=== PATIENT | male | born 1995 | race African-American/Black ===

== ENCOUNTER 2020-05-28 17:36 | Emergency (ER) | payer SELFPAY ==
[~2020-05-28] VITALS: Ht 172.7 cm; Wt 68.0 kg
[2020-05-28 18:43] VITALS: BP 142/61
[2020-05-28] MEDS ORDERED: PENICILLIN G BENZATHINE 2,400,000 UNITS/4ML SYR IM ONE (19:30)
[2020-05-28] MEDS ORDERED: PENICILLIN G BENZATHINE 1,200,000 UNITS/2ML SYR IM NR (20:00)
[2020-05-28 20:38] LABS: CLARITY URINE CLEAR (CLEAR); COLOR URINE DARK YELLOW (YELLOW); KETONES URINE NEGATIVE (NEGATIVE); LEUKOCYTE ESTERASE URINE TRACE (NEGATIVE); NITRITE URINE NEGATIVE (NEGATIVE); OCCULT BLOOD URINE NEGATIVE (NEGATIVE); PH URINE 6.5 (4.5-8.0); PROTEIN URINE 1+ (NEGATIVE); SPECIFIC GRAVITY URINE 1.033 (1.005-1.030)
[2020-05-31 05:09] LABS: NEISSERIA GONORRHOEAE NAA Negative (Negative)
== END 2020-05-28 20:45 | disposition home or self-care (01) ==
LOC: ER 17:36
DX: A51.0 Primary genital syphilis (principal); Z20.2 Contact with and (suspected) exposure to infections with a predominantly sexual mode of transmission
CPT/HCPCS: 81003; 86592; 87491; 87591; 96372; 99283; J0561

== ENCOUNTER 2023-07-21 14:16 | Emergency (ER) | payer SELFPAY ==
[~2023-07-21] VITALS: Ht 175.3 cm; Wt 71.0 kg
[2023-07-21] MEDS ORDERED: DOXYCYCLINE HYCLATE 100MG CAPSULE PO ONE (15:30)
[2023-07-21] MEDS ORDERED: CEFTRIAXONE SODIUM 500 MG/VIAL IM ONE (15:30)
[2023-07-21] MEDS ORDERED: DOXY100C5 MT (16:03)
[2023-07-21 16:13] VITALS: BP 124/78; PULSE 77; RESP 18; TEMP 98.3
[2023-07-24 05:11] LABS: CHLAMYDIA TRACHOMATIS NAA Negative (Negative); NEISSERIA GONORRHOEAE NAA Positive (Negative)
== END 2023-07-21 16:14 | disposition home or self-care (01) ==
LOC: ER 14:16
DX: Z20.2 Contact with and (suspected) exposure to infections with a predominantly sexual mode of transmission (principal); J45.909 Unspecified asthma, uncomplicated; Z88.6 Allergy status to analgesic agent; Z98.890 Other specified postprocedural states
CPT/HCPCS: 99283; 87491; 87591; 96372; J0696

== ENCOUNTER 2023-11-26 09:35 | Emergency (ER) | payer MEDICAID ==
[~2023-11-26] VITALS: Ht 175.3 cm; Wt 81.6 kg
[~2023-11-26 09:35] MED LIST: DOXY100C5 MT
[2023-11-26 09:38] VITALS: O2SAT 97
[2023-11-26] MEDS ORDERED: DOXY100T2 MT (10:14)
[2023-11-26] MEDS: CEFTRIAXONE SODIUM 500MG VIAL IM ONE (10:15)
[2023-11-26] MEDS: LIDOCAINE HCL 1% 20ML VIAL (Pyxis) INJ INFIL ONE (10:45)
[2023-11-26 10:54] VITALS: BP 122/63; PULSE 70; RESP 16; TEMP 98.2
== END 2023-11-26 11:19 | disposition home or self-care (01) ==
LOC: ER 09:35
DX: A64 Unspecified sexually transmitted disease (principal); J45.909 Unspecified asthma, uncomplicated
CPT/HCPCS: 99283; 86592; 36415; 96372; J0696; J3490

== ENCOUNTER 2023-12-17 21:26 | Emergency (ER) | payer MEDICAID ==
[~2023-12-17] VITALS: Ht 176.5 cm; Wt 82.0 kg
[~2023-12-17 21:26] MED LIST changes: +DOXY100T2 MT
[2023-12-17 22:21] VITALS: BP 93/66; PULSE 99; RESP 16; TEMP 98.1; O2SAT 98
[2023-12-18] MEDS ORDERED: CEFTRIAXONE SODIUM 500MG VIAL IM ONE (03:15)
[2023-12-18] MEDS ORDERED: DOXY100T2 MT (03:21)
== END 2023-12-18 04:39 | disposition home or self-care (01) ==
LOC: ER 21:26
DX: A64 Unspecified sexually transmitted disease (principal); J45.909 Unspecified asthma, uncomplicated
CPT/HCPCS: 99283; J0696

== ENCOUNTER 2023-12-18 21:49 | Emergency (ER) | payer MEDICAID ==
[~2023-12-18] VITALS: Ht 175.3 cm; Wt 64.9 kg
[2023-12-18 21:53] VITALS: BP 92/55; RESP 16; TEMP 98.3; O2SAT 99
[2023-12-18 21:55] VITALS: PULSE 95
== END 2023-12-19 04:22 | disposition left against medical advice (07) ==
LOC: ER 21:49
DX: J02.9 Acute pharyngitis, unspecified (principal); Z53.21 Procedure and treatment not carried out due to patient leaving prior to being seen by health care provider

== ENCOUNTER 2024-10-24 20:12 | Emergency (ER) | payer MEDICAID ==
[~2024-10-24] VITALS: Ht 175.3 cm; Wt 85.0 kg
[~2024-10-24 20:12] MED LIST changes: +AMOX1TAB16 MT; +HYDR50TA40 MT; +METR-167 MT
[2024-10-24 20:46] VITALS: O2SAT 99
[2024-10-24 20:56] VITALS: TEMP 36.9
[2024-10-25 01:31] LABS: BASOPHILS % 1.2 % (0.0-2.0); DIFFERENTIAL COMMENT 0; HEMATOCRIT. 29.5 % (42.0-52.0); HEMOGLOBIN. 9.4 g/dL (14.0-18.0); MEAN CORPUSCULAR HEMOGLOBIN 25.3 pg (28.0-32.0); MEAN CORPUSCULAR HGB CONC 31.9 g/dL (31.0-37.0); MEAN CORPUSCULAR VOLUME 79.2 fL (80.0-94.0); MEAN PLATELET VOLUME 11.6 fl (7.4-10.4); MONOCYTES % 10.7 % (2.0-8.0); NEUTROPHILS % 52.1 % (40.0-76.0); PLATELET 354 x1000/uL (130-400); RED BLOOD CELL COUNT 3.72 mill/uL (4.7-6.1); RED CELL DISTRIBUTION WIDTH 16.7 % (11.6-14.6); WHITE BLOOD COUNT 7.6 x1000/uL (4.5-11.0)
[2024-10-25 01:41] LABS: CHLORIDE 104 mEq/L (98-107); POTASSIUM 3.5 mEq/L (3.5-5.1); SODIUM 139 mEq/L (136-145)
[2024-10-25 01:42] LABS: CARBON DIOXIDE 28 mEq/L (21-32)
[2024-10-25 01:43] LABS: CALCIUM 9.3 mg/dL (8.7-10.4)
[2024-10-25 01:47] LABS: CREATININE 1.2 mg/dL (0.6-1.3)
[2024-10-25 01:48] LABS: GLUCOSE 69 mg/dL (70-105); UREA NITROGEN BLOOD 13 mg/dL (9-23)
[2024-10-25 01:49] LABS: ALANINE AMINOTRANSFERASE 18 IU/L (10-49); ASPARTATE AMINOTRANSFERASE 18 IU/L (<34)
[2024-10-25 01:50] LABS: BILIRUBIN DIRECT 0.1 mg/dL (<=3.0); BILIRUBIN TOTAL 0.3 mg/dL (0.1-1.0); PROTEIN TOTAL 7.8 g/dL (6.0-8.3)
[2024-10-25 05:32] VITALS: BP 119/70; PULSE 72; RESP 17; O2SAT 98
== END 2024-10-25 05:20 | disposition home or self-care (01) ==
LOC: ER 20:12
DX: R10.84 Generalized abdominal pain (principal); D64.9 Anemia, unspecified; J45.909 Unspecified asthma, uncomplicated; Z88.6 Allergy status to analgesic agent
CPT/HCPCS: 36415; 74176; 80048; 80076; 85025; 99284